=== PATIENT | male | born 1960 ===

== ENCOUNTER 2017-05-28 15:24 | Day surgery (SDC) | payer BC ==
[~2017-05-28] VITALS: Ht 170.2 cm; Wt 69.0 kg
[2017-05-28] MEDS ORDERED: LACTATED RINGERS 1,000 ML IV SCH (15:56)
[2017-05-28 15:59] VITALS: BP 144/84
[2017-05-28] MEDS ORDERED: TAMS-11 PO (15:59)
[2017-05-28] MEDS ORDERED: IBUP-1222 PO (15:59)
[2017-05-28] MEDS ORDERED: ONDA4TAB7 PO (15:59)
[2017-05-28] MEDS ORDERED: SUMA25TA4 PO (15:59)
[2017-05-28] MEDS ORDERED: OXYC-302 PO (15:59)
[2017-05-28] MEDS ORDERED: PLEASE ENTER HEIGHT AND WEIGHT MC SCH (16:00)
[2017-05-28] MEDS ORDERED: FENTANYL PF 250 MCG/5ML ONE (16:20)
[2017-05-28] MEDS ORDERED: MIDAZOLAM 1 MG/ML, 2ML ONE (16:20)
[2017-05-28] MEDS ORDERED: DEXAMETHASONE 4 MG/ML, 1ML ONE (16:35)
[2017-05-28] MEDS ORDERED: ONDANSETRON 2MG/ML, 2ML ONE ×2 (16:35→18:31)
[2017-05-28] MEDS ORDERED: KETOROLAC 30 MG/1 ML ONE (16:35)
[2017-05-28] MEDS ORDERED: PROPOFOL 10 MG/ML, 20ML ONE (16:35)
[2017-05-28] MEDS ORDERED: EPHEDRINE 50 MG/ML, 1ML IVPush PRN (17:30)
[2017-05-28] MEDS ORDERED: ONDANSETRON 2MG/ML, 2ML IVPush PRN (17:30)
[2017-05-28] MEDS ORDERED: FENTANYL PF 100 MCG/2ML IV PRN (17:30)
[2017-05-28] MEDS ORDERED: METOPROLOL 1 MG/ML, 5ML IV PRN (17:30)
[2017-05-28] MEDS ORDERED: PROMETHAZINE 25 MG/ML, 1ML IV PRN (17:30)
[2017-05-28] MEDS ORDERED: MIDAZOLAM 1 MG/ML, 2ML IV PRN (17:30)
[2017-05-28] MEDS ORDERED: HYDROmorphone 1 MG/ML, 1ML IV PRN (17:30)
[2017-05-28] MEDS ORDERED: hydrALAzine 20 MG/ML, 1ML IV PRN (17:30)
[2017-05-28] MEDS ORDERED: ACETAMINOPHEN 325 MG TABLET PO PRN (17:30)
[2017-05-28] MEDS ORDERED: HYDROcodone/APAP 7.5-325MG/15ML UDC PO PRN (17:30)
[2017-05-28] MEDS ORDERED: MEPERIDINE/PF 25MG/0.5ML IVPush PRN (17:30)
[2017-05-28] MEDS ORDERED: LABETALOL 5MG/ML, 20ML IV PRN (17:30)
[2017-05-28] MEDS ORDERED: ALBUTEROL SULFATE 2.5 MG/3 ML NPPB PRN (17:30)
[2017-05-28] MEDS ORDERED: OXYcodone 5 MG/5 ML ORAL.SOL UDC PO PRN (17:30)
[2017-05-28] MEDS ORDERED: OXYcodone 5 MG/5 ML ORAL.SOL UDC ONE (18:06)
[2017-05-28] MEDS ORDERED: ACETAMINOPHEN 650 MG/20.3 ML UDC ONE (18:06)
== END 2017-05-28 19:40 | disposition home or self-care (01) ==
LOC: OR 15:24
PROVIDERS: ATTEND Urology
DX: N20.1 Calculus of ureter (principal); G43.909 Migraine, unspecified, not intractable, without status migrainosus; F15.90 Other stimulant use, unspecified, uncomplicated; Z98.890 Other specified postprocedural states
CPT/HCPCS: 52353; 74000; 76001; J2250; J2405; J3010; J7120; C1726; J1100; J1885; J2704; C1769